=== PATIENT | male | born 1980 | race Caucasian/White ===

== ENCOUNTER 2016-08-09 14:26 | Emergency (ER) | payer OTHER ==
--- NOTE | ~2016-08-09 | CR63 ---
[facility] A Service of [facility] RADIOLOGY TEXT RESULTS PATIENT: KIMI FREY LOCATION: SED : 78 UNIT #: [id number] AGE: [address]: Leah Moura MD SEX: M ORDER DR: [id number] [place] [id number] MR#: [id number] Acc #: [id number] NAME: KIMI FREY : 1980 SEX: M STUDY DATE/TIME: 08/09/2016 14:37 UNIT: SED ROOM: STUDY DESCRIPTION: CR Chest 2 View Attending Physician: Leah Moura M.D. Ordering Physician: Leah Moura M.D. Primary Care Physician: Jil Ashley M.D. MEDICAL IMAGING REPORT This report is preliminary unless electronic signature is present. EXAM 2 views of the chest COMPARISON None INDICATION 36-year-old male with left-sided rib pain after falling down stairs last night. Dyspnea. FINDINGS Cardiomediastinal silhouette is normal. There is no evidence of pneumothorax or pleural effusion. There is poor inspiratory effort with crowding of central bronchovascular structures. There is calcified granuloma in the left lung base. Slightly asymmetric right basilar opacity favoring minimal atelectasis. No definite rib fracture on this exam. IMPRESSION 1. Poor inspiratory effort with bilateral bronchovascular crowding. Opacities are slightly asymmetric in the right lung base favoring minimal asymmetric subsegmental atelectasis. Clinical correlation to exclude signs of infection recommended. 2. No definite rib fracture seen on this exam. Dictated by... Naresh Tan M.D. THIS IS AN ELECTRONICALLY VERIFIED REPORT Naresh Tan M.D. at 08/15/2016 5:11 PM RANDELL/mike [facility] A Service of [facility] RADIOLOGY TEXT RESULTS PATIENT: KIMI FREY LOCATION: SED : 78 UNIT #: [id number] AGE: [address]: Leah Moura MD SEX: M ORDER DR: TD: 08/09/2016 16:11 JOB #: [id number] MEDICAL IMAGING REPORT Page 1 of 1
[~2016-08-09 14:26] MED LIST: KEFLEX PO; NO MEDICATIONS; UNKNOWN ANTIBIOTIC
== END 2016-08-09 15:11 | disposition home or self-care (01) ==
LOC: SED 14:26
DX: S20.212A Contusion of left front wall of thorax, initial encounter (principal); F17.200 Nicotine dependence, unspecified, uncomplicated; W20.8XXA Other cause of strike by thrown, projected or falling object, initial encounter; Y92.009 Unspecified place in unspecified non-institutional (private) residence as the place of occurrence of the external cause
CPT/HCPCS: 71020; 99283